=== PATIENT | female | born 1990 | race Hispanic/Latino ===

== ENCOUNTER 2018-06-05 00:04 | Day surgery (SDC) | payer OTHER ==
[2018-06-05 00:36] VITALS: BP 119/75; TEMP 98.4; BMI 26.5
[2018-06-05] MEDS ORDERED: Acetaminophen 500 MG TAB PO PRN (00:44)
[2018-06-05] MEDS ORDERED: Lactated Ringer's 1,000 ML IV SCH ×2 (00:45→09:45)
--- NOTE | 2018-06-05 07:22 | PRG ---
DATE OF SERVICE: 06/05/2018 TIME OF SERVICE: 0630 hours. SUBJECTIVE: Ms. Williamson is transferred over from the [place] ER after very extensive workup for cold or flu-like symptoms with incidental maternal tachycardia in the 110s to 120s. According to the ER doctor, she had evaluation for cardiac as well as pulmonary embolus, which was all negative. She was transferred here because she reported that she maintained a pulse of 120 and had not had any monitoring in [place]. She denies contractions. She reports active fetus. She reports she had congestion. 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 EDC is 06/13. Repeat is scheduled for 3 days. She had a in [place] in 2009 of a 9-pound 3-ounce male for arrest of descent. The patient had early enrollment into care. She had normal care. Blood type is A positive, antibody negative. Pap negative. Rubella immune. VDRL nonreactive. Hepatitis B, GC, chlamydia negative. Group B strep negative. She had a borderline high free T4 noted back in November. PAST MEDICAL HISTORY: Denies. PAST SURGICAL HISTORY: . ALLERGIES: DENIES. MEDICATIONS: vitamins. SOCIAL HISTORY: Denies tobacco, alcohol, or drug abuse. FAMILY HISTORY: Noncontributory. REVIEW OF SYSTEMS: Noncontributory. PHYSICAL EXAMINATION: GENERAL: female, resting comfortably. VITAL SIGNS: Temperature has been between 98.3 and 98.6 during her stay. Pulse has been between 100 and 108. Blood pressure is within normal limits at 118/72, respirations 18. HEENT: Nasal congestion. Clear throat. LUNGS: Clear to auscultation bilaterally. HEART: Regular rate and rhythm. ABDOMEN: Soft and nontender with a fundal height of 39 cm. FHTs 140s. GENITALIA: Vulva without lesions. Vaginal exam deferred. EXTREMITIES: No clubbing, cyanosis, or edema. monitoring was carried out, which revealed a category 1 heart rate tracing. No contractions. No decelerations. The patient was observed over 4-hour period and hydrated. She had no worsening of her symptoms. No fever. No evidence of distress and maternal pulse remained within normal limits for third trimester at 100 to 110. IMPRESSION: Upper respiratory infection at 38 to 39 weeks gestation. PLAN: Discharge home. Symptomatic management with [id number] medications. Anticipate repeat section as scheduled in 3 days. Job ID: [id number]
--- NOTE | 2018-06-05 11:33 | ULT ---
BIOPHYSICAL PROFILE: INDICATIONS: heart deceleration. FINDINGS: TONE SCORE: 2 BREATHING SCORE: 2 MOVEMENT SCORE: 2 AMNIOTIC FLUID SCORE: 2 TOTAL SCORE: 8/8 SEAN: 13.3 cm. PLACENTA: Fundal. POSITION: Vertex. HEART RATE: 171 beats per minute. POS: [facility]
== END 2018-06-05 12:40 | disposition home or self-care (01) ==
LOC: SDC/OP 00:04 → L&D/OP 12:40
PROVIDERS: ATTEND Obstetrics & Gynecology
DX: O99.513 Diseases of the respiratory system complicating pregnancy, third trimester (principal); J06.9 Acute upper respiratory infection, unspecified; Z3A.39 39 weeks gestation of pregnancy; O34.219 Maternal care for unspecified type scar from previous cesarean delivery
CPT/HCPCS: 59025; 76819; 96360; 96361; 99283

== ENCOUNTER 2018-06-07 09:26 | Inpatient (IN) | payer OTHER ==
[2018-06-07] MEDS ORDERED: Ondansetron PF 4 MG/2 ML Vial ONE ×2 (09:47→11:56)
[2018-06-07] MEDS ORDERED: ePHEDrine 50 MG/ML VIAL ONE (09:47)
[2018-06-07] MEDS ORDERED: Metoclopramide HCl 10 MG/2 ML VIAL ONE ×2 (09:47→13:11)
[2018-06-07] MEDS ORDERED: Ondansetron PF 4 MG/2 ML Vial IVP PRN ×3 (11:05→15:50)
[2018-06-07] MEDS ORDERED: CEFAZOLIN 2 GM in Premix Bag 1 BAG IVPB SCH (11:05)
[2018-06-07] MEDS ORDERED: Promethazine HCl 25 MG/ML VIAL IM PRN ×3 (11:05→15:50)
[2018-06-07] MEDS ORDERED: Lactated Ringer's 1,000 ML IV SCH (11:05)
[2018-06-07] MEDS ORDERED: Bicitra 30 ML UDCUP PO SCH (11:05)
[2018-06-07 11:23] VITALS: BMI 26.5
[2018-06-07 11:44] LABS: Hemoglobin 13.4 g/dL (12.0-16.0); Mean Corpuscular HGB CONC 33.7 g/dL (32.0-36.0); Mean Corpuscular Hemoglobin 33.1 pg (27.0-31.0); Mean Corpuscular Volume 98.2 fL (78.0-98.0); Mean Platelet Volume 8.9 fL (7.4-10.4); Platelet Count 177 thou/uL (130-400); Red Blood Cell (RBC) Count 4.05 mill/uL (4.20-5.40); White Blood Cell (WBC) Count 6.4 thou/uL (4.8-10.8)
[2018-06-07] MEDS ORDERED: MORPHINE 5 MG/10 ML PF VIAL ONE (11:55)
[2018-06-07] MEDS ORDERED: Oxytocin 10 UNITS/ML VIAL ONE (11:56)
[2018-06-07] MEDS ORDERED: ePHEDrine/0.9% NaCl/PF SYRINGE 50 mg/10 ml ONE (11:56)
--- NOTE | 2018-06-07 12:02 | PDOC.LDHP ---
Labor and Delivery H&P Chief complaint: scheduled section HPI: 28yo at 39w 1d by LMP for Repeat CS. No complaints. Current gestational age (weeks): 39 Due date: 06/13/18 Dating criteria: last menstrual period Grav: 2 Para: 1 Current complications: none Abnormal US findings: No Past Medical History: denies Current medications: pre-teddy vitamins Previous surgical history: low tranverse CS Allergies/Adverse Reactions: Allergies Allergy/AdvReac Type Severity Reaction Status Date / Time No Known Allergies Allergy Verified 06/07/18 11:25 Social history: none - Physical Exam Vital signs reviewed and normal: yes General: NAD Heart: RRR Lungs: CTAB Abdomen: gravid Extremeties: no edema FHT: category 1 (2) [place] contractions every: q7min - OB Labs Blood type: A RH: positive Antibody Screen: negative HIV: negative RPR: negative HEPSAg: negative 1 hour GCT: positive 3 hour GTT: negative GBS: positive Urine drug screen: negative Rubella: immune - Assessment L&D Assessment: scheduled repeat section - Plan Plan: admit to L&D, to OR for section, informed consent obtained, anesthesia consult for pain management
[2018-06-07 12:25] LABS: Hep B Surf Ag Non-Reactive S/CO (NonReactive)
[2018-06-07 12:27] LABS: Syphilis Antibody Nonreactive (Nonreactive); Syphilis Antibody Index 0.03 S/CO (<1.00 Non-Reactive)
[2018-06-07] MEDS ORDERED: Lidocaine 1% (PF) 30 ML VIAL ONE (12:27)
[2018-06-07] MEDS ORDERED: Naloxone HCl 0.4 mg/ml Vial IV PRN (12:38)
[2018-06-07] MEDS ORDERED: Promethazine HCl 25 MG SUPP PR PRN (12:38)
[2018-06-07] MEDS ORDERED: Naloxone HCl 0.4 mg/ml Vial IVP PRN ×2 (12:38)
[2018-06-07] MEDS ORDERED: Meperidine HCl/PF 25 MG/ML VIAL SLOW IVP PRN (12:38)
[2018-06-07] MEDS ORDERED: HYDROmorphone 2 MG/ML VIAL SLOW IVP PRN (12:38)
[2018-06-07] MEDS ORDERED: Eucerin (Mineral Oil/Petrolatum,White) 30 gm Jar TOP PRN (12:38)
[2018-06-07] MEDS ORDERED: L&D-Morphine 4 MG/ML VIAL SLOW IVP PRN (12:38)
[2018-06-07] MEDS ORDERED: Ondansetron HCl/PF 4 MG/2 ML Vial IVP PRN (12:38)
[2018-06-07] MEDS ORDERED: Ketorolac Tromethamine 30 MG/ML VIAL IVP SCH (12:45)
[2018-06-07] MEDS ORDERED: Communication Order-Pharmacy FS SCH (12:45)
[2018-06-07] MEDS ORDERED: NS / Oxytocin 40 units/1000ml 1,000 ML ONE (15:45)
[2018-06-07] MEDS ORDERED: Bisacodyl 10 MG SUPP PR PRN (15:50)
[2018-06-07] MEDS ORDERED: Lanolin Ointment 7 GM TUBE TOP PRN (15:50)
[2018-06-07] MEDS ORDERED: Simethicone Chewable 80 MG TAB PO PRN (15:50)
[2018-06-07] MEDS ORDERED: Acetaminophen 325 MG TAB PO PRN (15:50)
[2018-06-07] MEDS ORDERED: diphenhydrAMINE 25 MG CAP PO PRN (15:50)
[2018-06-07] MEDS: diphenhydrAMINE 50 MG/ML VIAL IVP PRN ×2 (17:15→21:42)
[2018-06-07] MEDS: Ketorolac Tromethamine 30 MG/ML VIAL IVP PRN (22:03)
[2018-06-07] MEDS: Ferrous Sulfate 325 MG TAB PO SCH (22:05)
[2018-06-07] MEDS: Docusate Calcium (SURFAK) 240 MG CAP PO SCH (22:05)
[2018-06-08] MEDS ORDERED: HYDROcodone/Acetaminophen 5/325 mg Tablet PO PRN (00:45)
[2018-06-08] MEDS: Ketorolac Tromethamine 30 MG/ML VIAL IVP PRN (06:25)
[2018-06-08 06:56] LABS: Mean Corpuscular HGB CONC 34.1 g/dL (32.0-36.0); Mean Corpuscular Hemoglobin 33.4 pg (27.0-31.0); Mean Corpuscular Volume 98.2 fL (78.0-98.0); Mean Platelet Volume 8.9 fL (7.4-10.4); Platelet Count 158 thou/uL (130-400); RBC Distribution Width 11.8 % (11.5-14.5); Red Blood Cell (RBC) Count 3.58 mill/uL (4.20-5.40); White Blood Cell (WBC) Count 9.4 thou/uL (4.8-10.8)
[2018-06-08] MEDS: Ferrous Sulfate 325 MG TAB PO SCH ×2 (07:45→22:58)
--- NOTE | 2018-06-08 08:02 | PDOC.OPDEL ---
OB Operative/Delivery Note Delivery Dr/Surgeon: Geoffrey Assist: ANA Jara Pre-Delivery Diagnosis: scheduled section Procedure/Post Delivery Dx: repeat low transverse CS Weeks gestation: 39 Anesthesia: spinal - Findings A Sex: male - 1 min: 8 - 5 min: 9 - Additional Findings/Plan Placenta delivered: spontaneous findings: low transverse hysterotomy without extension, normal uterus, normal tubes, normal ovaries Estimated blood loss: 300 Compilations/Other Findings: meconium staining Post delivery plan: routine recovery
--- NOTE | 2018-06-08 08:07 | PDOC.PP ---
Post Progress Note Post Day #: 1 PO intake tolerated: yes Flatus: yes Ambulation: yes Vital Signs (12 hours) Temp Pulse Resp BP Pulse Ox 06/08/18 08:00 98.2 F 85 16 109/62 97 06/08/18 06:00 20 06/08/18 03:40 97.9 F 91 20 117/75 06/08/18 02:00 20 06/08/18 00:00 98.3 F 89 18 116/66 06/07/18 22:00 18 06/07/18 20:22 97.6 F 83 16 127/77 98 Weight Weight 150 lb - Physical Examination General: NAD Cardiovascular: RRR Respiratory: non-labored breathing Abdominal: no distention, appropriately TTP Fundus firm & at: umb Extremities: negative homans (B) Skin: CS incision dry & intact Neurological: no gross focal deficits Psychiatric: normal affect Result Diagrams: 06/08/18 06:31 Additional Labs: Post Labs Blood Type A POSITIVE 06/07/18 13:49 Hep Bs Antigen Non-Reactive S/CO (NonReactive) 06/07/18 11:21 - Assessment/Plan POD1 s/p RCS VSSAF Doing well, appropriate milestones, routine advances, pain controlled this am Hgb 12.0 postop, no sx anemia, cont PNV Rh pos RImm Cont postop care, likely home tomorrow.
[2018-06-08] MEDS ORDERED: Adacel (T-DAP) 0.5 ML SYRINGE IM ONE (09:00)
[2018-06-08] MEDS: Docusate Calcium (SURFAK) 240 MG CAP PO SCH ×2 (09:42→20:55)
[2018-06-08] MEDS: HYDROcodone/Acetaminophen 5/325 mg Tablet PO PRN ×2 (09:42→16:20)
[2018-06-08] MEDS: Prenatal Vitamin 1 TAB PO SCH (09:42)
[2018-06-08] MEDS: Ibuprofen 800 MG TAB PO SCH ×2 (13:20→20:55)
--- NOTE | 2018-06-08 15:33 | OP ---
DATE OF PROCEDURE: 06/07/2018 PREOPERATIVE DIAGNOSIS: Intrauterine at 39 weeks and 1 day, prior x1, declines trial of labor after . POSTOPERATIVE DIAGNOSIS: Intrauterine at 39 weeks and 1 day, prior x1, declines trial of labor after . PROCEDURE PERFORMED: Repeat low transverse section via Pfannenstiel skin incision. ANESTHESIA: Spinal. CARDIOVASCULAR OR NURSE SURGEON: ANA Jensen. ESTIMATED BLOOD LOSS: 300 mL. IVF: 1800 mL of crystalloid. URINE OUTPUT: 200 mL of clear urine. DRAINS: Gibbs catheter. PATHOLOGY: None. COMPLICATIONS: None. FINDINGS: Male infant, cephalic presentation, moderate meconium-stained amniotic fluid, Apgars of 9 and 9. Weight is 6 pounds 11 ounces. Hysterotomy without extension. Mild omental adhesions to the anterior abdominal wall. Normal uterus, ovaries, and tubes bilaterally. DESCRIPTION OF PROCEDURE: The patient was taken to the operating room, where spinal anesthesia was obtained without difficulty. The patient was prepped and draped in a sterile fashion in the dorsal supine position with a leftward tilt. After ensuring adequacy of anesthesia, a Pfannenstiel skin incision was made with a knife and carried down to the underlying subcutaneous tissue. The patient's previous scar was then excised with a knife. The fascia was nicked in midline with a knife and carried laterally with the Villanueva scissors. The superior aspect of the fascia was tented with 2 Hayde's and dissected off the rectus with the Villanueva scissors. The inferior aspect of the fascia was tented with 2 Hayde's and dissected off the rectus with the Villanueva scissors as well. The peritoneum was bluntly entered into, and the omental adhesions to the anterior abdominal wall were then taken down with the Bovie and hemostasis was noted. The Sterling O retractor was placed. The vesicouterine peritoneum was incised with the Metzenbaum scissors, and the bladder flap was created manually. The lower uterine segment was incised in a transverse fashion, extended with a Whittington maneuver. The 's head was brought to the hysterotomy and delivered with fundal pressure followed by the body. The infant's cord was clamped and the handed to the waiting Arnaldo team. The placenta was allowed to spontaneously deliver. The uterus was exteriorized, cleared of all clots and debris and the posterior cul-de-sac was left out. The uterus was placed back into the abdomen, and the hysterotomy was repaired with #1 Monocryl in a running locking fashion with excellent hemostasis. The pelvis was then irrigated copiously and then suctioned. Hemostasis was again noted. The Sterling O retractor was removed. The rectus muscles were examined and noted to be hemostatic. The fascia was reapproximated with a 0 PDS x2 sutures with excellent reapproximation. The subcutaneous tissue was irrigated and cauterized of any bleeders and reapproximated with a 2-0 plain gut in a running fashion, and the skin was closed with 4-0 Monocryl in subcuticular fashion. Dermabond was applied as well as the pressure dressing. The patient tolerated the procedure well. Sponge, lap, and needle counts were correct x2. The patient was taken to recovery room in stable condition. The patient received Ancef 2 g prior to the procedure. Job ID: [id number]
--- NOTE | 2018-06-09 03:00 | PDOC.PP ---
Post Progress Note Post Day #: 2 Subjective: Patient doing well. No significant overnight events. Patient tolerating PO. Pain well controlled. Passing flatus. Ambulating without difficulty. PO intake tolerated: yes Flatus: yes Ambulation: yes Vital Signs (12 hours) Temp Pulse Resp BP Pulse Ox 06/09/18 00:00 97.5 F L 77 18 110/59 L 06/08/18 20:18 97.6 F 88 18 121/73 98 06/08/18 16:05 98.3 F 82 18 112/65 98 Weight Weight 68.039 kg - Physical Examination General: NAD Cardiovascular: no m/r/g, RRR Respiratory: clear to auscultation bilaterally, non-labored breathing Abdominal: + bowel sounds, lochia (like that of a period), no distention, appropriately TTP Fundus firm & at: at umbilicus Extremities: negative homans (B) Skin: CS incision dry & intact, no rash Neurological: no gross focal deficits Psychiatric: A&Ox3, normal affect Result Diagrams: 06/08/18 06:31 Additional Labs: Post Labs Blood Type A POSITIVE 06/07/18 13:49 Hep Bs Antigen Non-Reactive S/CO (NonReactive) 06/07/18 11:21 (1) Term delivered Code(s): O80 - ENCOUNTER FOR FULL-TERM UNCOMPLICATED DELIVERY Status: Acute (2) S/P repeat low transverse Code(s): Z98.891 - HISTORY OF UTERINE SCAR FROM PREVIOUS SURGERY Status: Acute - Assessment/Plan 28 year old --> P2 delivered TAGA M infant on 06/07 via rLTCS Routine PP care - POD #2 s/p rLTCS - VSS, afebrile - Doing well, appropriate milestones, routine advances, pain controlled this am with medication - Hgb 12.0 postop, no sx anemia, cont PNV - Formula feeding - Rh pos, RImm - Cont postop care, likely home today Dispo: Plan for d/c home today. Addendum - Attending - Attending Attestation Date/Time: 06/10/18 0121 I personally evaluated the patient and discussed the management with Dr. Rogers I agree with the History, Examination, Assessment and Plan documented above with any addition or exceptions noted below.
[2018-06-09] MEDS: HYDROcodone/Acetaminophen 5/325 mg Tablet PO PRN (04:05)
[2018-06-09] MEDS: Ibuprofen 800 MG TAB PO SCH (05:44)
[2018-06-09] MEDS: Prenatal Vitamin 1 TAB PO SCH (09:27)
[2018-06-09] MEDS: Docusate Calcium (SURFAK) 240 MG CAP PO SCH (09:27)
[2018-06-09] MEDS: Ferrous Sulfate 325 MG TAB PO SCH (09:28)
[2018-06-09 12:34] VITALS: BP 126/74; TEMP 97.6
== END 2018-06-09 12:25 | disposition home or self-care (01) | DRG 788 ==
LOC: L&D 10:42 → 3SW 16:11 → EDSTATUS 16:14 → 3SW 17:25
PROVIDERS: ADMIT Student in an Organized Health Care Education/Training Program; ATTEND Student in an Organized Health Care Education/Training Program
PROC: 10D00Z1 Extraction of Products of Conception, Low, Open Approach (ICD-10-PCS; principal; 2018-06-07)
DX: O34.211 Maternal care for low transverse scar from previous cesarean delivery (principal); Z3A.39 39 weeks gestation of pregnancy; Z37.0 Single live birth; O99.824 Streptococcus B carrier state complicating childbirth; O99.62 Diseases of the digestive system complicating childbirth; K66.0 Peritoneal adhesions (postprocedural) (postinfection)
CPT/HCPCS: 36415; 51702; 85027; 86780; 86850; 86900; 86901; 87340; 90715; J1200; J1885; J2001; J2270; J2405; J2590; J2765; Q0163